=== PATIENT | female | born 1955 | race Native Hawaiian/Other Pacific Islander ===

== ENCOUNTER 2019-11-29 13:01 | Outpatient (CLI) | payer OTHER | END 2019-11-29 23:16 | disposition home or self-care (01) | LOC: LAB 13:01 | DX: L03.116 Cellulitis of left lower limb (principal) | CPT/HCPCS: 87070; 87205 ==

== ENCOUNTER 2023-04-25 13:08 | Outpatient (CLI) | payer OTHER, MEDICARE | END 2023-04-25 19:30 | disposition home or self-care (01) | LOC: LAB 13:08 | PROVIDERS: ATTEND Internal Medicine | DX: M79.603 Pain in arm, unspecified (principal); W54.0XXA Bitten by dog, initial encounter | CPT/HCPCS: 87070; 87205 ==